=== PATIENT | female | born 1995 | race Caucasian/White ===

== ENCOUNTER 2016-07-10 09:14 | Emergency (ER) | payer MEDICAID ==
[~2016-07-10] VITALS: Ht 172.7 cm; Wt 141.0 kg
[~2016-07-10 09:14] MED LIST: VIBR100C PO
[2016-07-10 09:20] VITALS: BP 144/84; PULSE 93; RESP 16; TEMP 98.8; O2SAT 97
--- NOTE | 2016-07-10 09:32 | PD ---
HPI Chief Complaint: Lump, Cyst, Hernia Time Seen by Provider: 09:32 Travel History International Travel<30 days: No Contact w/Intl Traveler<30days: No Traveled to known affect area: No History of Present Illness HPI 20-year-old female came to the emergency room with history of a lump that she noticed in her neck area just under the hairline last night. Patient says she was just feeling her neck when she noticed the lump. It is slightly tender to touch but otherwise does not bother her. No history of fever or chills. She told her mother this morning about the lump and mom wanted her to come in and be checked out. Vital signs were normal in triage. Mom also mentioned that she has been coughing a little for past few days. Patient said she had slight cold. Upon asking she denied any scalp infections that she is aware of. PFSH Past Medical History Narrative Medical List of her past medical, surgical, social and family history was reviewed from the nursing note. Hx Anticoagulant Therapy: No Asthma: Yes Anxiety: Yes Depression: Yes Heart Rhythm Problems: Yes (PAROXISMAL A. 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 Reported Meds & Prescriptions Reported Meds & Active Scripts Active No Active Prescriptions or Reported Medications Narrative Medication List of her home medications reviewed from the nursing note. Review of Systems Except as stated in HPI: all other systems reviewed are Neg Physical Exam Narrative GENERAL: Awake, alert, morbidly obese, no obvious distress SKIN: Focused skin assessment warm/dry. Acne, 1 x 1 cm mobile soft lymphadenopathy at the occipital area HEAD: Atraumatic. Normocephalic. EYES: Pupils equal and round. No scleral icterus. No injection or drainage. ENT: No nasal bleeding or discharge. Mucous membranes pink and moist. NECK: Trachea midline. No JVD. CARDIOVASCULAR: Regular rate and rhythm. No murmur appreciated. RESPIRATORY: No accessory muscle use. Clear to auscultation. Breath sounds equal bilaterally. GASTROINTESTINAL: Abdomen soft, non-tender, nondistended. Hepatic and splenic margins not palpable. MUSCULOSKELETAL: No obvious deformities. No clubbing. No cyanosis. No edema. NEUROLOGICAL: Awake and alert. No obvious cranial nerve deficits. Motor grossly within normal limits. Normal speech. PSYCHIATRIC: Appropriate mood and affect; insight and judgment normal. Data Data Last Documented VS [facility] Medical Decision Making Medical Screen Exam Complete: Yes Emergency Medical Condition: Yes Medical Record Reviewed: Yes Differential Diagnosis Lymphadenopathy, lymphadenitis Narrative Course 9:48 AM I explained to the patient and the mother that for isolated lymphadenopathy no workup is required at the present time. However over the next few days to weeks if the swelling starts to get bigger then it needs to be reassessed either by primary care or she is more than welcome to come back to the emergency room. Mom asked me to check her ears which I did as well as the throat and they were non-erythematous, eardrums have good light reflex and no exudates in the pharynx or tonsillar. I will discharge her home. She needs to get a primary care for herself. Procedures EKG Prior to Arrival: No Diagnosis Primary Impression: Occipital lymphadenopathy Referrals: Primary Care Physician 1 week Additional Instructions: Please follow-up with your primary care. If you do not have one try to get one. Please return to the ER if the condition worsens or any other new concerns. Med/Other Pt SpecificInfo: No Change to Meds Scripts No Active Prescriptions or Reported Meds Disposition: DISCHARGE HOME Condition: Stable Bettie Rivera MD Jul 10, 2016 09:32 Med/Other Pt SpecificInfo: No Change to Meds Scripts No Active Prescriptions or Reported Meds Disposition: DISCHARGE HOME Condition: Serious Bettie Rivera MD Jul 10, 2016 09:32
== END 2016-07-10 09:59 | disposition home or self-care (01) ==
LOC: PHED 09:14 → PHEFT 09:59
DX: R59.0 Localized enlarged lymph nodes (principal); R05 Cough; Z87.09 Personal history of other diseases of the respiratory system; Z86.59 Personal history of other mental and behavioral disorders; Z86.79 Personal history of other diseases of the circulatory system; Z87.19 Personal history of other diseases of the digestive system; Z87.39 Personal history of other diseases of the musculoskeletal system and connective tissue; Z87.2 Personal history of diseases of the skin and subcutaneous tissue
CPT/HCPCS: 99283

== ENCOUNTER 2016-09-15 15:26 | Emergency (ER) | payer MEDICAID ==
[~2016-09-15] VITALS: Ht 172.7 cm; Wt 140.0 kg
[2016-09-15 15:30] VITALS: BP 149/88; PULSE 86; RESP 16; TEMP 98.3; O2SAT 98
[2016-09-15] MEDS ORDERED: ALPR.25 PO (15:39)
--- NOTE | 2016-09-15 16:16 | PD ---
HPI Chief Complaint: Eye Problems/Injury Time Seen by Provider: 16:01 Travel History International Travel<30 days: No Contact w/Intl Traveler<30days: No Traveled to known affect area: No History of Present Illness HPI This is a 20 year old female who presents to the emergency department having woken up with bright white spots and blurry lines in her vision, constant, not improving throughout the day, with no associated pain in the eye. She denies any headache. She says she has difficulty focusing on things because of the lines. She says she has had something similar in the setting of migraines in the past but this is the worst it's ever been and today she has no headache. She says the visual abnormality only affects her right eye. PFSH Past Medical History Hx Anticoagulant Therapy: No Asthma: Yes Anxiety: Yes Depression: Yes Heart Rhythm Problems: Yes (PAROXISMAL A. 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) Integumentary: Yes (Treated for possible MRSA 08/09/2011) Immunizations Current: Yes Tetanus Vaccination: < 5 Years Influenza Vaccination: No ?: Not LMP: NONE Menopausal: No : 2 Para: 1 Miscarriage: 1 : 0 Past Surgical History Section: Yes Social History Alcohol Use: No Tobacco Use: No Substance Use: Yes (POT) Allergies-Medications (Allergen,Severity, Reaction): Coded Allergies: Latex (Verified Allergy, Severe, SWELLING, 09/15/16) Reported Meds & Prescriptions Reported Meds & Active Scripts Active Reported Xanax (Alprazolam) 0.25 Mg Tab 0.25 Mg PO ONCE PRN Review of Systems Except as stated in HPI: all other systems reviewed are Neg Physical Exam Narrative GENERAL: Well-appearing, no acute distress, nontoxic SKIN: Warm and dry. HEAD: Atraumatic. Normocephalic. EYES: pupils are equal and reactive to light, normal extraoccular movements, some photophobia with light shined into the right eye. ENT: No nasal bleeding or discharge. Moist mucous membranes MUSCULOSKELETAL: No obvious deformities. No clubbing. No cyanosis. No edema. NEUROLOGICAL: Awake and alert. No obvious cranial nerve deficits. Motor grossly within normal limits. Normal speech. PSYCHIATRIC: Appropriate mood and affect; insight and judgment normal. Data Data Last Documented VS Vital Signs Date Time Temp Pulse Resp B/P Pulse Ox O2 Delivery O2 Flow Rate FiO2 09/15/16 15:30 98.3 86 16 149/88 98 [facility] Medical Decision Making Medical Screen Exam Complete: Yes Emergency Medical Condition: Yes Interpretation(s) afebrile, no tachycardia, hypertension Differential Diagnosis Migraine, retinal detachment, vitreous hemorrhage, optic neuritis Narrative Course This is a 20-year-old female who presents to the emergency department with flashes in her vision in her right eye that been going on all day. She maintains normal visual acuity in that eye. She has a fairly benign exam. She does have a history of migraine. Given her age and is very unlikely that she has retinal pathology contributing to her symptoms, however I do think her symptoms warrant a dilated exam. I spoke to Dr. Veliz who was environmental remediation specialist for retina at [facility]. He offered to see the patient in clinic this evening and [place] or if the patient would prefer he thought it was safe for her to follow up tomorrow at their clinic in [facility]. I had a long conversation with the patient. She prefer to follow-up in [facility]. She was given the phone number for the clinic and told to return to the emergency department if her symptoms worsen. Diagnosis Primary Impression: Visual changes Additional Instructions: If you develop loss of vision, floaters, shadows or dark spots in your vision, or severe pain return to the emergency department. Follow up without fail with the [facility] at [phone]. We spoke to Dr. Veliz this evening and he said a colleague would be able to see you in [facility] tomorrow. Med/Other Pt SpecificInfo: No Change to Meds Disposition: 01 DISCHARGE HOME Condition: Stable Khushbu Bedoya MD Sep 15, 2016 16:16
[2016-09-15 17:40] VITALS: BP 119/68
== END 2016-09-15 17:42 | disposition home or self-care (01) ==
LOC: PHED 15:26
DX: H57.8 Other specified disorders of eye and adnexa (principal); I47.1 Supraventricular tachycardia
CPT/HCPCS: 99282

== ENCOUNTER 2016-09-23 23:44 | Emergency (ER) | payer MEDICAID ==
[~2016-09-23] VITALS: Ht 170.2 cm; Wt 99.0 kg
[~2016-09-23 23:44] MED LIST changes: +ALPR.25 PO; -VIBR100C PO
[2016-09-23 23:47] VITALS: BP 160/73; PULSE 118; RESP 18; TEMP 98.3; O2SAT 99
--- NOTE | 2016-09-24 01:21 | RADRPT ---
EXAM DATE/TIME: 09/24/2016 01:17 [facility] COMPARISON: CHEST PA & LAT, August 18, 2014, 13:37. INDICATIONS : Chest pain x 1 day MEDICAL HISTORY : Asthma, gallstones SURGICAL HISTORY : section. ENCOUNTER: Initial ACUITY: 1 day PAIN SCORE: 7/10 LOCATION: Bilateral chest FINDINGS: PA and lateral views of the chest demonstrate the lungs to be symmetrically aerated without evidence of mass, infiltrate or effusion. The cardiomediastinal contours are unremarkable. Osseous structure s are intact. CONCLUSION: No acute disease. Michael Oconnell MD on September 24, 2016 at 1:19 Board Certified Radiologist. This report was verified electronically.
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
[2016-09-24] MEDS ORDERED: ACETAMINOPHEN 325 MG TAB PO ONE (01:30)
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
[2016-09-24 03:45] VITALS: BP 155/70; PULSE 101; RESP 20; O2SAT 98
== END 2016-09-24 03:46 | disposition home or self-care (01) ==
LOC: NEPC 23:44
DX: S09.90XA Unspecified injury of head, initial encounter (principal); J45.909 Unspecified asthma, uncomplicated; F41.9 Anxiety disorder, unspecified; F32.9 Major depressive disorder, single episode, unspecified; Y04.8XXA Assault by other bodily force, initial encounter; Y93.9 Activity, unspecified; Y92.9 Unspecified place or not applicable; Y99.9 Unspecified external cause status
CPT/HCPCS: 70450; 70490; 71020; 84703

== ENCOUNTER 2016-11-14 16:15 | Emergency (ER) | payer MEDICAID ==
[~2016-11-14] VITALS: Ht 170.2 cm; Wt 135.0 kg
[2016-11-14 16:35] VITALS: BP 148/109; PULSE 91; RESP 18; TEMP 98.6; O2SAT 96
[2016-11-14] MEDS ORDERED: KETOROLAC TROMETHAMINE 30 MG/ML (IVP) VIAL IV PUSH ONE (17:00)
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
[2016-11-14 17:20] LABS: AUTOMATED NEUTROPHIL # 5.2 TH/MM3 (1.8-7.7); BASOPHIL # 0.1 TH/MM3 (0-0.2); BASOPHIL % 0.9 % (0.0-2.0); EOSINOPHIL # 0.3 TH/MM3 (0-0.4); EOSINOPHIL % 3.7 % (0.0-4.0); HEMATOCRIT 36.7 % (35.0-46.0); LYMPH % 24.1 % (9.0-44.0); MEAN CELL VOLUME 85.2 FL (80.0-100.0); MEAN CORPUSCULAR HEMOGLOBIN 29.2 PG (27.0-34.0); MEAN CORPUSCULAR HGB CONC 34.2 % (32.0-36.0); MONO % 7.1 % (0.0-8.0); NEUT % 64.2 % (16.0-70.0); PLATELET COUNT 329 TH/MM3 (150-450); RED CELL DISTRIBUTION WIDTH 12.8 % (11.6-17.2); WHITE BLOOD COUNT 8.3 TH/MM3 (4.0-11.0)
[2016-11-14 17:22] LABS: HEMO FLAGS AUTO DIFF
[2016-11-14 17:29] LABS: CHLORIDE 106 MEQ/L (98-107); POTASSIUM 3.6 MEQ/L (3.5-5.1); SODIUM (NA) 138 MEQ/L (136-145)
[2016-11-14 17:32] LABS: ANION GAP 13 MEQ/L (5-15); BICARBONATE 19.2 MEQ/L (21.0-32.0); BLOOD UREA NITROGEN 12 MG/DL (7-18)
[2016-11-14 17:35] LABS: APTT (PATIENT) 27.2 SEC (24.3-30.1); GLOMERULAR FILTRATION RATE 89 ML/MIN (>89); INTERNATIONAL NORMALIZED RATIO 1.1 RATIO; SCAN/DIFF AUTO DIFF CONFIRMED
--- NOTE | 2016-11-14 17:48 | RADRPT ---
EXAM DATE/TIME: 11/14/2016 17:19 [facility] COMPARISON: CHEST PA & LAT, September 24, 2016, 1:17. INDICATIONS : Short of breath and chest pain. MEDICAL HISTORY : Tachyacardia SURGICAL HISTORY : None. ENCOUNTER: Initial ACUITY: 1 day PAIN SCORE: 4/10 LOCATION: Bilateral chest FINDINGS: The lungs are clear without infiltrate, nodule, or mass. There is no appreciable pleural effusion fo r technique. Heart and mediastinum are unremarkable. CONCLUSION: No acute cardiopulmonary disease. Tyler Terrell MD on November 14, 2016 at 17:46 Board Certified Radiologist. This report was verified electronically.
[2016-11-14] MEDS ORDERED: LORA-474 PO (18:02)
[2016-11-14] MEDS ORDERED: LORazepam 1 MG TAB PO ONE (18:15)
[2016-11-14 18:17] VITALS: BP 124/63; PULSE 87; RESP 16; O2SAT 98
[2016-11-14 18:21] VITALS: RESP 16
--- NOTE | 2016-11-15 11:58 | EKG ---
Date Performed: 11/14/2016 Time Performed: 16:26:24 PTAGE: 20 years EKG: Sinus rhythm NONSPECIFIC T-WAVE ABNORMALITY BORDERLINE ECG Compared to prior tracing no significant change PREVIOUS TRACING 11/06/2014 22.34.28 DOCTOR: Tod Garvey Interpretating Date/Time 11/15/2016 11:50:45
== END 2016-11-14 18:45 | disposition home or self-care (01) ==
LOC: PHEFT 16:15
DX: M94.0 Chondrocostal junction syndrome [Tietze] (principal); F41.9 Anxiety disorder, unspecified; J45.909 Unspecified asthma, uncomplicated; R73.03 Prediabetes
CPT/HCPCS: 71010; 80048; 84443; 84484; 85025; 85379; 85610; 85730; 93005; 96374; 99285; J1885

== ENCOUNTER 2017-01-10 10:05 | Emergency (ER) | payer MEDICAID ==
[~2017-01-10] VITALS: Ht 170.2 cm; Wt 144.0 kg
[~2017-01-10 10:05] MED LIST changes: +LORA-474 PO
[2017-01-10 10:11] VITALS: BP 133/78; PULSE 87; RESP 18; TEMP 98.4; O2SAT 97
[2017-01-10 11:02] VITALS: BP 133/78; PULSE 87; RESP 18; TEMP 98.4; O2SAT 97
--- NOTE | 2017-01-10 12:03 | PD ---
HPI Chief Complaint: Pain: Acute or Chronic Time Seen by Provider: 11:48 Travel History International Travel<30 days: No Contact w/Intl Traveler<30days: No Traveled to known affect area: No History of Present Illness HPI 21-year-old morbidly obese female presents to emergency department for left knee pain for 3 weeks. States this pain started approximately 3 weeks ago after she was working and describes it as intermittent, dull, and achy. Standing exacerbates her pain as does movement against gravity and full extension. States that she has some radiation from her anterior knee up to her hip. She has taken some leftover lortab and motrin whenever the pain worsens. Her last dose of Motrin 800 was this morning around 8 AM. Denies recent travel, surgery, OCP, or surgery. Denies fevers, unusual chest pain, shortness of breath , or back pain. Patient has not seen her primary care or specialist for this condition. PFSH Past Medical History Hx Anticoagulant Therapy: No Asthma: Yes Anxiety: Yes Depression: Yes Heart Rhythm Problems: Yes (PAROXISMAL A. 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) Integumentary: Yes (Treated for possible MRSA 08/09/2011) Immunizations Current: Yes Tetanus Vaccination: Unknown ?: Not Menopausal: No : 2 Para: 1 Miscarriage: 1 : 0 Past Surgical History Section: Yes Gynecologic Surgery: Yes Social History Alcohol Use: No Tobacco Use: No Substance Use: No Allergies-Medications (Allergen,Severity, Reaction): Coded Allergies: latex (Unverified Allergy, Severe, SWELLING, 01/10/17) Reported Meds & Prescriptions Reported Meds & Active Scripts Active Diclofenac Sodium DR (Diclofenac Sodium) 50 Mg Tabdr 50 Mg PO BID 5 Days Ativan (Lorazepam) 1 Mg Tab 1 Mg PO Q8H PRN Review of Systems Except as stated in HPI: all other systems reviewed are Neg Physical Exam Narrative GENERAL: Well-nourished, well-developed patient in no apparent distress ambulating well SKIN: Focused skin assessment warm/dry. HEAD: Normocephalic. CARDIOVASCULAR: Regular rate and rhythm without murmurs, gallops, or rubs. RESPIRATORY: Breath sounds equal bilaterally. No accessory muscle use. GASTROINTESTINAL: Abdomen soft, non-tender, nondistended. MUSCULOSKELETAL: No cyanosis, or edema. No tenderness palpation of the hips, sacroiliac region, or buttocks Left leg: Minimal laxity with varus and valgus, negative posterior anterior drawer, no clicking or popping. No tenderness to palpation. No ecchymosis, edema or erythema. Note: Body habitus somewhat limits my exam. Negative Cony's bilaterally. Possible cystic structure behind knee with mild TTP. BACK: Nontender without obvious deformity. No CVA tenderness. Data Data Last Documented VS Vital Signs Date Time Temp Pulse Resp B/P (MAP) Pulse Ox O2 Delivery O2 Flow Rate FiO2 01/10/17 12:55 01/10/17 11:02 98.4 87 18 97 01/10/17 10:11 Room Air Orders Orders Knee, Ltd (1 Or 2vws) (01/10/17 ) Splint Or Brace Apply/Monitor (01/10/17 12:28) Ed Discharge Order (01/10/17 12:33) MDM Medical Decision Making Medical Screen Exam Complete: Yes Emergency Medical Condition: Yes Differential Diagnosis Left knee contusion versus meniscal injury versus ligamental injury versus septic arthritis Narrative Course 21-year-old female presents to emergency for left knee pain for 3 weeks. States that she does have radiation of pain up to left hip however patient has full range of motion of hip without tenderness or pain. Denies trauma, fever, recent surgery or antibiotic use. Physical exam demonstrated tenderness to palpation, erythema, lymphangitic Spread. Range of motion testing revealed mild pain to full extension of knee and special tests. Because of patient's body habitus, nature of work, and pain, will obtain a knee xray to rule out bony abnormality. Xray without deformity or acute process. Patient has some Lortab at home from a leftover injury so will prescribe an antiinflammatory to supplement what pt has already. Advised patient follow up with primary care physician and/or ortho further treatment and evaluation. Diagnosis Primary Impression: Knee sprain Qualified Codes: S83.92XA - Sprain of unspecified site of left knee, initial encounter Referrals: Orthopedist Primary Care Physician Additional Instructions: May use ice and/or heat for symptom relief. Use light stretches Return to your primary care physician within 2 days for follow-up Use medications sparingly for pain. Scripts Diclofenac Sodium DR (Diclofenac Sodium DR) 50 Mg Tabdr 50 MG PO BID for 5 Days, #10 TAB 0 Refills Prov: Trae Fierro MD 01/10/17 Disposition: 01 DISCHARGE HOME Condition: Stable Eboni Cordero Jan 10, 2017 12:03
--- NOTE | 2017-01-10 12:26 | RADRPT ---
EXAM DATE/TIME: 01/10/2017 12:15 [facility] COMPARISON: No previous studies available for comparison. INDICATIONS : Left knee pain with no known injury. MEDICAL HISTORY : None. SURGICAL HISTORY : None. ENCOUNTER: Initial ACUITY: 2 weeks PAIN SCORE: 6/10 LOCATION: Left posterior knee FINDINGS: Two view examination of the left knee demonstrates no evidence of fracture or dislocation. Bony mine ralization is normal. The suprapatellar soft tissues have a normal configuration. CONCLUSION: Normal examination for a patient of this age. Andrew Contreras MD on January 10, 2017 at 12:25 Board Certified Radiologist. This report was verified electronically.
[2017-01-10] MEDS ORDERED: DICL50TA3 PO (12:30)
== END 2017-01-10 13:03 | disposition home or self-care (01) ==
LOC: PHED 10:05 → PHEFT 13:03
DX: S83.92XA Sprain of unspecified site of left knee, initial encounter (principal); X58.XXXA Exposure to other specified factors, initial encounter
CPT/HCPCS: 73560; 99283; L1830

== ENCOUNTER 2017-04-24 09:06 | Emergency (ER) | payer SELFPAY ==
[~2017-04-24] VITALS: Ht 170.2 cm; Wt 142.4 kg
[~2017-04-24 09:06] MED LIST changes: -ALPR.25 PO; +DICL50TA3 PO
[2017-04-24 09:11] VITALS: BP 137/73; PULSE 84; RESP 16; TEMP 98.6; O2SAT 96
[2017-04-24] MEDS ORDERED: AMOX875T PO (09:51)
[2017-04-24] MEDS ORDERED: MAGICADU2 SWISH-SWAL (09:51)
--- NOTE | 2017-04-24 09:55 | PD ---
HPI Chief Complaint: ENT Complaint Time Seen by Provider: 09:20 Travel History International Travel<30 days: No Contact w/Intl Traveler<30days: No Traveled to known affect area: No History of Present Illness HPI 21-year-old female that presents to the ED for evaluation of sore throat. Per patient she's had this since last night. Per patient he started after eating an apple. The patient her mother noticed that she had a scratch on her uvula was concerned about this. Patient states that it hurts to swallow. Feels like a burning sensation. Able to do so however. No fevers chills or sweats. No congestion. No sick contacts. No other medical issues at this time. Pain per patient is 7 out of 10 and gets worse with swallowing. Allergy to latex. PFSH Past Medical History Hx Anticoagulant Therapy: No Asthma: Yes Anxiety: Yes Depression: Yes Heart Rhythm Problems: Yes (PAROXISMAL A. 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) Integumentary: Yes (Treated for possible MRSA 08/09/2011) Immunizations Current: Yes Influenza Vaccination: No ?: Not LMP: 04/19/17 Menopausal: No : 2 Para: 1 Miscarriage: 1 : 0 Past Surgical History Section: Yes Gynecologic Surgery: Yes Social History Alcohol Use: No Tobacco Use: No Substance Use: No Allergies-Medications (Allergen,Severity, Reaction): Coded Allergies: latex (Unverified Allergy, Severe, SWELLING, 04/24/17) Reported Meds & Prescriptions Reported Meds & Active Scripts Active Magic Mouthwash Adult Liq (Multi-Ingredient Mouthwash/Gargle) 120 Ml Susp 5 Ml SWISH-SWAL ACHS Each 5mL contains: Nystatin 200,000units, Diphenhydramine 4.25mg, Viscous Lidocaine 10mg, Weiss syrup 0.8 mL Amoxicillin 875 Mg Tab 875 Mg PO BID 10 Days Review of Systems Except as stated in HPI: all other systems reviewed are Neg Physical Exam Narrative GENERAL: Well-nourished, well-developed patient in no apparent distress. SKIN: Warm and dry. HEAD: Atraumatic. Normocephalic. EYES: Pupils equal and round reactive to light and accommodation. No scleral icterus. No injection or drainage. ENT: No nasal bleeding or discharge. Mucous membranes pink and moist. TMs are clear with no sign of infection or perforation. No mastoid tenderness. Ear canals are intact bilaterally. No lymphadenopathy. Nostril mucosa is red and moist with clear mucus noted. No sinus tenderness to palpation noted. Tonsils are swollen bilaterally but right worse than left. No exudates and tonsils are not touching. Patient does have what appears to be erythema noted on the middle of the uvula. No ulvua Deviation. Tongue is midline. NECK: Trachea midline. No JVD. No meningeal signs noted CARDIOVASCULAR: Regular rate and rhythm. RESPIRATORY: No accessory muscle use. Clear to auscultation. Breath sounds equal bilaterally. RESPIRATORY: No accessory muscle use. Clear to auscultation. Breath sounds equal bilaterally. GASTROINTESTINAL: Abdomen soft, non-tender, nondistended. Hepatic and splenic margins not palpable. MUSCULOSKELETAL: Extremities without clubbing, cyanosis, or edema. No obvious deformities. NEUROLOGICAL: Awake and alert. No obvious cranial nerve deficits. Motor grossly within normal limits. Five out of 5 muscle strength in the arms and legs. Normal speech. PSYCHIATRIC: Appropriate mood and affect; insight and judgment normal. Data Data Last Documented VS Vital Signs Date Time Temp Pulse Resp B/P (MAP) Pulse Ox O2 Delivery O2 Flow Rate FiO2 04/24/17 09:11 98.6 84 16 137/73 (94) 96 Orders Orders Group A Rapid Strep Screen (04/24/17 09:17) Strep Culture (Group A) (04/24/17 09:19) Ed Discharge Order (04/24/17 09:51) MDM Medical Decision Making Medical Screen Exam Complete: Yes Emergency Medical Condition: Yes Medical Record Reviewed: Yes Interpretation(s) Strep negative Differential Diagnosis Pharyngitis versus strep throat versus normal exam Narrative Course 21-year-old female that presents to the ED for evaluation of sore throat. Patient was properly examined and was found to have signs and symptoms concerning for strep throat. Test was done. This was negative. Likely viral in nature but could be false negative secondary to patient only having symptoms for less than 24 hours. We'll treat with amoxicillin to cover for this as well as magic mouthwash. Patient was told that if any symptoms worsen to come back to the ED. Motrin for pain. Cold fluids. See ED worsening symptoms. Diagnosis Primary Impression: Pharyngitis, acute Qualified Codes: J02.9 - Acute pharyngitis, unspecified Patient Instructions: General Instructions Departure Forms: Tests/Procedures Additional Instructions: Motrin and Tylenol for pain and fever. Drink plenty of fluids. Follow-up with PCP. See ED for worsening symptoms. Med/Other Pt SpecificInfo: Prescription(s) given Scripts Ktswsmcu-Gxlbahoxfpocshp-Gentabpsi Liq (Magic Mouthwash Adult Liq) 120 Ml Susp 5 ML SWISH-SWAL ACHS for Mouth sores, #120 ML 0 Refills Each 5mL contains: Nystatin 200,000units, Diphenhydramine 4.25mg, Viscous Lidocaine 10mg, Weiss syrup 0.8 mL Prov: Abbi Jackson MD 04/24/17 Amoxicillin (Amoxicillin) 875 Mg Tab 875 MG PO BID for Infection for 10 Days, #20 TAB 0 Refills Prov: Abbi Jackson MD 04/24/17 Disposition: 01 DISCHARGE HOME Condition: Stable Cisco Williamson Apr 24, 2017 09:55
== END 2017-04-24 10:03 | disposition home or self-care (01) ==
LOC: PHEFT 09:06
DX: J02.9 Acute pharyngitis, unspecified (principal); I10 Essential (primary) hypertension; J45.909 Unspecified asthma, uncomplicated; F32.9 Major depressive disorder, single episode, unspecified
CPT/HCPCS: 87081; 87880; 99283

== ENCOUNTER 2017-06-12 16:22 | Emergency (ER) | payer SELFPAY ==
[~2017-06-12] VITALS: Ht 170.2 cm; Wt 144.5 kg
[~2017-06-12 16:22] MED LIST changes: +AMOX875T PO; -DICL50TA3 PO; -LORA-474 PO; +MAGICADU2 SWISH-SWAL
[2017-06-12 16:28] VITALS: BP 182/111; PULSE 94; RESP 18; TEMP 98.5; O2SAT 99
--- NOTE | 2017-06-12 16:51 | PD ---
HPI Chief Complaint: Complaint Time Seen by Provider: 16:38 Travel History International Travel<30 days: No Contact w/Intl Traveler<30days: No Traveled to known affect area: No History of Present Illness HPI 21-year-old female presents to the emergency department with complaint of burning on urination that started this morning. Says her symptoms are consistent with the onset of past urinary tract infections. Denies hematuria. Reports urinary frequency. Denies fever, vomiting. Has felt nauseated for the past week. Denies low back pain, abdominal pain, pelvic pain. Denies abnormal vaginal discharge, odor. Reports some vaginal itching. Last menstrual period was May 19. Denies contraception use. Has been taking ibuprofen for symptom management with some relief. Reports pain 07/31. Describes it as a pressure. Allergies to latex. No primary care provider. History of PAT. No current medications. Has no other medical complaints. No other modifying factors or associated signs and symptoms. PFSH Past Medical History Hx Anticoagulant Therapy: No Asthma: Yes Anxiety: Yes Depression: Yes Heart Rhythm Problems: Yes (PAROXISMAL A. 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) Integumentary: Yes (Treated for possible MRSA 08/09/2011) Immunizations Current: Yes ?: Unknown LMP: 05/19/17 Menopausal: No : 2 Para: 1 Miscarriage: 1 : 0 Past Surgical History Section: Yes Gynecologic Surgery: Yes Social History Alcohol Use: No Tobacco Use: No Substance Use: No Allergies-Medications (Allergen,Severity, Reaction): Coded Allergies: latex (Unverified Allergy, Severe, SWELLING, 06/12/17) Reported Meds & Prescriptions Reported Meds & Active Scripts Active Ibuprofen 800 Mg Tab 800 Mg PO Q6HR PRN Pyridium (Phenazopyridine HCl) 100 Mg Tab 100 Mg PO Q8H PRN 3 Days Keflex (Cephalexin) 500 Mg Cap 500 Mg PO Q12H 7 Days Review of Systems Except as stated in HPI: all other systems reviewed are Neg Physical Exam Narrative Take antibiotics as prescribed and complete full course Take Pyridium for bladder spasms: Pyridium will turn your urine bright orange Drink plenty of fluids Maintain good personal hygiene Follow-up with primary care provider Follow-up with gynecology Return to the emergency department immediately with worsening of symptoms Data Data Last Documented VS Vital Signs Date Time Temp Pulse Resp B/P (MAP) Pulse Ox O2 Delivery O2 Flow Rate FiO2 06/12/17 16:28 98.5 94 18 182/111 (134) 99 Room Air Orders Orders Urinalysis - C+S If Indicated (06/12/17 16:26) Ed Urine Pregnancytest Poc (06/12/17 16:26) Gc And Chlamydia Pcr (06/12/17 16:43) Ed Discharge Order (06/12/17 17:18) Ketorolac Inj (Toradol Inj) (06/12/17 17:30) Labs Laboratory Tests Test 06/12/17 16:40 Urine Color YELLOW Urine Turbidity CLEAR Urine pH 5.5 Urine Specific [place] 1.010 Urine Protein NEG mg/dL Urine Glucose (UA) NEG mg/dL Urine Ketones NEG mg/dL Urine Occult Blood NEG Urine Nitrite NEG Urine Bilirubin NEG Urine Urobilinogen 0.2 MG/DL Urine Leukocyte Esterase SMALL Urine RBC 0-3 /hpf Urine WBC 0-2 /hpf Urine Squamous Epithelial Cells 0-5 /hpf Urine Bacteria OCC /hpf Urine Mucus FEW /lpf Microscopic Urinalysis Comment CULT NOT INDICATED MDM Medical Decision Making Medical Screen Exam Complete: Yes Emergency Medical Condition: Yes Medical Record Reviewed: Yes Differential Diagnosis Cystitis, UTI, pyelonephritis, bacterial vaginosis, vaginal yeast Narrative Course 21-year-old female with dysuria. Denies abnormal vaginal discharge or odor. Reports some vaginal itching. Urinalysis and UPT ordered. UPT negative. 1720: Urinalysis without signs of infection. I discussed findings with the patient and she is asking for antibiotics. I will provide patient with a prescription for antibiotics secondary to reported symptoms. Chlamydia and gonorrhea pending. Instructed patient to follow-up with gynecology. Community resources provided for follow-up. Keflex, Pyridium, ibuprofen prescribed for home. Toradol administered prior to discharge. Instructed patient to follow up with primary care provider. Patient verbalizes understanding and agreement with treatment plan. Patient is medically cleared and stable for discharge. Discussed reasons to return to the emergency department. Patient agrees with treatment plan. The patients vital signs are stable and the patient is stable for outpatient follow-up and treatment. Patient discharged home, stable and in no acute distress. Diagnosis Primary Impression: Cystitis Referrals: [facility] Carpenter/Labor [facility] Primary Care Physician Patient Instructions: General Instructions, Interstitial Cystitis (ED), Urinary Tract Infection in Women (ED) Departure Forms: Tests/Procedures, Work Release Enter return to work date: Jun 13, 2017 Additional Instructions: Take antibiotics as prescribed and complete full course Take Pyridium for bladder spasms: Pyridium will turn your urine bright orange Drink plenty of fluids Maintain good personal hygiene Follow-up with primary care provider Return to the emergency department immediately with worsening of symptoms Med/Other Pt SpecificInfo: Prescription(s) given Scripts Ibuprofen (Ibuprofen) 800 Mg Tab 800 MG PO Q6HR Y for PAIN, #20 TAB 0 Refills Prov: Caren Rizvi 06/12/17 Phenazopyridine (Pyridium) 100 Mg Tab 100 MG PO Q8H Y for DYSURIA for 3 Days, #9 TAB 0 Refills Prov: Caren Rizvi 06/12/17 Cephalexin (Keflex) 500 Mg Cap 500 MG PO Q12H for Infection for 7 Days, #14 CAP 0 Refills Prov: Caren Rizvi 06/12/17 Disposition: 01 DISCHARGE HOME Condition: Stable Caren Rizvi Jun 12, 2017 16:51
[2017-06-12 16:56] LABS: BILIRUBIN, URINE NEG (NEG); BLOOD, URINE NEG (NEG); GLUCOSE,URINE NEG (NEG); KETONE, URINE NEG (NEG); NITRITE,URINE NEG (NEG); PH, URINE 5.5 (5.0-8.5); URINE COLOR YELLOW (YELLW/STRAW); URINE LEUKOCYTE ESTERASE SMALL (NEG)
[2017-06-12 17:08] LABS: BACTERIA, URINE OCC /hpf; MUCUS URINE FEW /lpf (OCC); RBC, URINE 0-3 /hpf (0-3); SQUAMOUS EPITHELIAL CELL URINE 0-5 /hpf (0-5); WBC, URINE 0-2 /hpf (0-5)
[2017-06-12] MEDS ORDERED: IBUP1TAB7 PO (17:17)
[2017-06-12] MEDS ORDERED: CEPH-460 PO (17:17)
[2017-06-12] MEDS ORDERED: PHEN0.4T PO (17:17)
[2017-06-12 17:21] VITALS: BP 102/73
[2017-06-12] MEDS ORDERED: KETOROLAC TROMETHAMINE 60 MG/2 ML (IM) VIAL IM ONE (17:30)
== END 2017-06-12 17:38 | disposition home or self-care (01) ==
LOC: PHEFT 16:22
DX: N30.00 Acute cystitis without hematuria (principal); R11.0 Nausea; L29.2 Pruritus vulvae; I10 Essential (primary) hypertension; Z87.09 Personal history of other diseases of the respiratory system; Z86.59 Personal history of other mental and behavioral disorders; Z86.79 Personal history of other diseases of the circulatory system; Z87.19 Personal history of other diseases of the digestive system; Z87.39 Personal history of other diseases of the musculoskeletal system and connective tissue; Z87.2 Personal history of diseases of the skin and subcutaneous tissue
CPT/HCPCS: 81001; 84703; 87491; 87591; 96372; 99284; J1885